=== PATIENT | female | born 1985 | race African-American/Black ===

== ENCOUNTER 2017-08-19 13:24 | Emergency (ER) | payer SELFPAY ==
[2017-08-19 13:30] VITALS: BP 134/79
[2017-08-19] MEDS: FLUORESCEIN 1MG EYE STRIP. OS ONE (14:15)
[2017-08-19] MEDS: TETRACAINE 0.5% OPHTH SOLUTION 4ML BOTTLE. OS ONE (14:15)
[2017-08-19] MEDS ORDERED: NEO/5DRO OD (14:29)
[2017-08-19] MEDS ORDERED: NAPR-683 PO (14:29)
--- NOTE | 2017-08-19 14:30 | PHYS DOC ---
Past History Past Medical History: No Pertinent History Past Surgical History: No Surgical History Smoking: Non-smoker Alcohol Use: Occasionally Drug Use: None Adult General Chief Complaint Chief Complaint: EYE PROBLEMS HPI HPI 31-year-old female patient states she felt foreign body sensation in her left eye last night and rubbing her eye and this morning she woke up with pain and redness of her eye with yellow discharge and unable to open her left eye. She complaining of vomiting and photophobia and swelling of her left eyelid. Patient denies wearing contact lenses or eyeglasses or trauma to her eye. Review of Systems Review of Systems Constitutional: Denies fever or chills [] Eyes: Reports change in visual acuity, redness, eye pain [] HENT: Denies nasal congestion or sore throat [] Respiratory: Denies cough or shortness of breath [] Cardiovascular: No additional information not addressed in HPI [] GI: Denies abdominal pain, nausea, vomiting, bloody stools or diarrhea [] : Denies dysuria or hematuria or [] Musculoskeletal: Denies back pain or joint pain [] Integument: Denies rash or skin lesions [] Neurologic: Denies headache, focal weakness or sensory changes [] Endocrine: Denies polyuria or polydipsia [] All other systems were reviewed and found to be within normal limits, except as documented in this note. Current Medications Current Medications Current Medications Medications (Trade) Dose Ordered Sig/Gama Start Time Stop Time Status Last Admin Dose Admin Fluorescein Sodium (Ful-Zeina 1mg) 1 strip 1X ONCE 08/19/17 14:15 08/19/17 14:16 DC Tetracaine HCl (Tetracaine) 1 drop 1X ONCE 08/19/17 14:15 08/19/17 14:16 DC Allergies Allergies Allergies Coded Allergies Type Severity Reaction Last Updated Verified No Known Drug Allergies 08/19/17 No Physical Exam Physical Exam Constitutional: Well developed, well nourished, moderate distress, non-toxic appearance. [] HENT: Normocephalic, atraumatic, bilateral external ears normal, oropharynx moist, no oral exudates, nose normal. [] Eyes: PERRLA, EOMI, edema of upper and lower left eyelids with mild erythema and tearing, large corneal scratch with fluorescein uptake Neck: Normal range of motion, no tenderness, supple, no stridor. [] Cardiovascular:Heart rate regular rhythm, no murmur [] Lungs & Thorax: Bilateral breath sounds clear to auscultation [] Neurologic: Alert and oriented X 3, normal motor function, normal sensory function, no focal deficits noted. [] Psychologic: Affect normal, judgement normal, mood normal. [] Current Patient Data Vital Signs Vital Signs Date Time Temp Pulse Resp B/P (MAP) Pulse Ox O2 Delivery O2 Flow Rate FiO2 08/19/17 13:30 98.4 71 16 99 Room Air EKG EKG [] Radiology/Procedures Radiology/Procedures [] Course & Med Decision Making Course & Med Decision Making Evaluation of patient in ER showed 31-year-old female patient with complaining of left eye foreign body sensation and pain and erythema. Patient had a large corneal discussion felt better with applying tetracaine. Plan to discharge patient home with diagnose of corneal scratch and prescription of Maxitrol and Naprosyn. discharge: I've spoken with the patient and/or caregivers. I've explained the patient's condition, diagnosis and treatment plan based on information available to me at this time. I've answered the patient's and/or caregivers questions and addressed any concerns. The patient and/or caregivers have a good understanding the patient's diagnosis, condition and treatment plan as can be expected at this point. Vital signs have been stabilized. The patient's condition is stable for discharge from the emergency department. The patient will pursue further outpatient evaluation with her primary care provider or other designated consulting physician as outlined in the discharge instructions. Patient and/or caregivers are agreeable to this plan of care and follow-up instructions have been explained in detail. The patient and/or caregivers have received these instructions in written format and expressed understanding of these discharge instructions. The patient and her caregivers are aware that if any significant change in condition or worsening of symptoms should prompt him to immediately return to this of the closest emergency department. If an emergent department is not readily available I would encourage him to call 911. Simon Disclaimer Simon Disclaimer This electronic medical record was generated, in whole or in part, using a voice recognition dictation system. Departure Departure: Impression: Primary Impression: Left corneal abrasion Disposition: HOME, SELF-CARE (At 1427) Condition: IMPROVED Referrals: PCPALBERTO (PCP) Patient Instructions: Eye - Corneal Abrasion, [id number] Additional Instructions: Do not rub your eye Follow-up with your primary care physician in 2-3 days Return to ER if not getting better Scripts Naproxen (NAPROSYN) 500 Mg Tablet 1 TAB PO BID, #14 TAB 1 Refill Prov: IGNACIO READ MD 08/19/17 Kenan/Polymyx B Sulf/Dexameth (MAXITROL EYE DROPS) 5 Ml Drops.susp 1 DROP OD Q3-4HRS for 7 Days, #5 ML Prov: IGNACIO READ MD 08/19/17 IGNACIO READ MD Aug 19, 2017 14:29
== END 2017-08-19 14:34 | disposition home or self-care (01) ==
LOC: ER 13:24
DX: S05.02XA Injury of conjunctiva and corneal abrasion without foreign body, left eye, initial encounter (principal); X58.XXXA Exposure to other specified factors, initial encounter; Y93.89 Activity, other specified; Y99.8 Other external cause status; Y92.89 Other specified places as the place of occurrence of the external cause
CPT/HCPCS: 99283

== ENCOUNTER 2018-01-13 10:03 | Emergency (ER) | payer SELFPAY ==
[~2018-01-13] VITALS: Ht 165.1 cm; Wt 54.4 kg
[~2018-01-13 10:03] MED LIST: NAPR-683 PO; NEO/5DRO OD
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
[2018-01-13] MEDS ORDERED: NAPROXEN 500 MG TABLET PO ONE (10:45)
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
[2018-01-13] MEDS ORDERED: NAPR-683 PO (11:23)
[2018-01-13 11:29] VITALS: BP 144/70
== END 2018-01-13 11:30 | disposition home or self-care (01) ==
LOC: ER 10:03
DX: S16.1XXA Strain of muscle, fascia and tendon at neck level, initial encounter (principal); V89.2XXA Person injured in unspecified motor-vehicle accident, traffic, initial encounter; Y93.I9 Activity, other involving external motion; Y99.8 Other external cause status; Y92.89 Other specified places as the place of occurrence of the external cause
CPT/HCPCS: 72040; 99284

== ENCOUNTER 2018-12-10 11:12 | Emergency (ER) | payer SELFPAY ==
[~2018-12-10] VITALS: Ht 157.5 cm; Wt 50.8 kg
[2018-12-10 11:27] VITALS: BP 123/89
[2018-12-10] MEDS ORDERED: PENICILLIN G BENZATHINE LA 1,200,000 UNIT/2 ML DISP.SYRIN. IM ONE (11:50)
[2018-12-10 12:08] LABS: MONONUCLEOSIS PATIENT NEGATIVE (NEGATIVE)
[2018-12-10] MEDS ORDERED: AMOX1TAB61 PO (12:24)
--- NOTE | 2018-12-10 12:24 | PHYS DOC ---
Past History Past Medical History: No Pertinent History Past Surgical History: Other Smoking: Non-smoker Alcohol Use: None Drug Use: None Adult General Chief Complaint Chief Complaint: SORE THROAT HPI HPI Patient is a 33-year-old female who presents with complaint of sore throat and fever for the last few days. Patient indicates that she has seen white spots all over her tonsils and states that she had been given some amoxicillin by a friend a few days ago but states that it has not been getting any better. Patient reports that her fevers been as high as 103. She denies any nausea or vomiting.[] Review of Systems Review of Systems Constitutional: Positive fever and chills [] HENT: Positive sore throat [] Respiratory: Denies cough or shortness of breath [] Cardiovascular: No additional information not addressed in HPI [] Current Medications Current Medications Current Medications Medications (Trade) Dose Ordered Sig/Gama Start Time Stop Time Status Last Admin Dose Admin Penicillin G Benzathine (Bicillin L-A) 1,200,000 unit 1X ONCE 12/10/18 11:50 12/10/18 11:51 DC 12/10/18 11:38 1,200,000 UNIT Allergies Allergies Allergies Coded Allergies Type Severity Reaction Last Updated Verified No Known Drug Allergies 08/19/17 No Physical Exam Physical Exam Constitutional: Well developed, well nourished, no acute distress, non-toxic appearance. [] HENT: Normocephalic, atraumatic, there is tonsillar swelling with diffuse tonsillar exudates. [] Neck: Normal range of motion, no tenderness, supple, no stridor. [] Cardiovascular:Heart rate regular rhythm, no murmur [] Lungs & Thorax: Bilateral breath sounds clear to auscultation [] \ Current Patient Data Vital Signs Vital Signs Date Time Temp Pulse Resp B/P (MAP) Pulse Ox O2 Delivery O2 Flow Rate FiO2 12/10/18 11:27 103.0 107 18 98 Room Air Lab Results Laboratory Tests Test 12/10/18 11:33 12/10/18 11:50 Heterophil Agglutinins Negative (NEGATIVE) Group A Streptococcus Rapid Negative (NEGATIVE) EKG EKG [] Radiology/Procedures Radiology/Procedures [] Course & Med Decision Making Course & Med Decision Making Pertinent Labs and Imaging studies reviewed. (See chart for details) [] Dragon Disclaimer Dragon Disclaimer This electronic medical record was generated, in whole or in part, using a voice recognition dictation system. Departure Departure: Impression: Primary Impression: Tonsillitis with exudate Disposition: HOME, SELF-CARE Condition: STABLE Referrals: PCP,NO (PCP) Patient Instructions: Tonsillitis Scripts Amoxicillin/Potassium Clav (AUGMENTIN 875-125 TABLET) 1 Each Tablet 1 TAB PO BID for INFECTION, #20 TAB Prov: DORA CHRISTOPHER Jr., DO 12/10/18 DORA CHRISTOPHER Jr., DO Dec 10, 2018 12:24
== END 2018-12-10 12:30 | disposition home or self-care (01) ==
LOC: ER 11:12
DX: J03.90 Acute tonsillitis, unspecified (principal)
CPT/HCPCS: 86308; 87070; 87880; 96372; 99284; J0561